=== PATIENT | female | born 1955 | race Caucasian/White ===

== ENCOUNTER 2017-09-09 11:31 | Emergency (ER) | payer MEDICAID ==
[2017-09-09 11:40] VITALS: RESP 16
--- NOTE | 2017-09-09 12:43 | EDPHY ---
H & P Time Seen by Provider: 09/09/17 12:12 HPI/ROS: CHIEF COMPLAINT: Sore throat, hoarseness HISTORY OF PRESENT ILLNESS: 61-year-old female presents to the emergency department complaining of ongoing sore throat and hoarseness over last 3 weeks. The patient states initially 3 weeks ago she developed some pain in her throat. She went to [facility] and was started on amoxicillin. She took this medication for 2 days and did not have any relief. She presented to the urgent care again and they gave her Zithromax. She states that the sore throat felt slightly improved. She would did also have a right ear infection and that has now resolved. She had a rapid strep screen which was negative. She was also given dexamethasone at that time. Patient states that her symptoms slightly improved and then over the weekend she had some scrambled legs and then within about 10 min she developed severe onset of pain in her throat. She went back to urgent care where they treated her for possible anaphylactic reaction. She states the medications did not relieve anything and gradually improved. She states today now 2 days later she has recurring hoarseness and some intermittent pain. She currently does not have any pain in her throat now. She denies dysphagia. She feels a tight feeling in her throat. She does not feel foreign body sensation. She has no chest pain or difficulty breathing. Occasional dry cough. No abdominal pain or vomiting. No dizziness or lightheadedness. REVIEW OF SYSTEMS: Constitutional: No fever, no chills. Eyes: No double or blurry vision. ENT: Sore throat. Respiratory: Cough. no shortness of breath. Cardiac: No chest pain. Gastrointestinal: No abdominal pain, vomiting or diarrhea. Genitourinary: No dysuria. Musculoskeletal: No neck or back pain. Skin: No rashes. Neurological: No headache. Past Medical/Surgical History: Negative Social History: Single and lives in [place] Smoking Status: Never smoked Physical Exam: General Appearance: Alert, no distress. Afebrile. 36.7, 98% on room air. Eyes: Pupils equal and round. Extraocular motions are all intact. ENT: Mouth: Mucous membranes moist. Mild posterior pharyngeal injection. No exudate. No uvulitis. No trismus. Raspy type voice with with whispering noted. Respiratory: No wheezing, rhonchi, or rales, lungs are clear to auscultation. Cardiovascular: Regular rate and rhythm. Gastrointestinal: Abdomen is soft and nontender, no masses, no rebound or guarding, bowel sounds normal. Neurological: Alert and oriented x 3, cranial nerves II through XII grossly intact Skin: Warm and dry, no rashes. Musculoskeletal: Nontender to palpate along the cervical, thoracic or lumbar spine. Neck is supple. Extremities: Full range of motion and no peripheral edema. Psychiatric: Patient is oriented X 3, there is no agitation. Constitutional: Initial Vital Signs Temperature (C) 36.7 C 09/09/17 11:37 Heart Rate 71 09/09/17 11:37 Respiratory Rate 16 09/09/17 11:37 Blood Pressure 144/91 H 09/09/17 11:37 O2 Sat (%) 98 09/09/17 11:37 O2 Delivery Mode Room Air Allergies/Adverse Reactions: No Known Allergies Allergy (Verified 09/09/17 11:36) Home Medications: Medication Instructions Recorded Benadryl 09/09/17 Pepcid 09/09/17 Medical Decision Making ED Course/Re-evaluation: 61-year-old female presents to the emergency department with ongoing a hoarseness and sore throat. Patient states presently she does not have a sore throat. The patient otherwise has a normal examination. She has no chest pain or difficulty breathing. No dysphagia. She has been treated with steroids as well as antibiotics and both amoxicillin for 2 days and then finished Zithromax recently. Explained to the patient that if she has had ongoing hoarseness and an intermittent tight feeling in her throat, I recommended CT soft tissue neck imaging as well as further workup. The patient however declined. She would like to follow up with Ear Nose and Throat provider. I spoke with Karla Molina, physician timber management assistant on-call for ENT, who states that she could be seen same day and information was provided for the patient. Patient was given Decadron 10 mg p.o. in the emergency department. I explained to the patient that she should return immediately if she develops difficulty swallowing, difficulty breathing, chest pain, or if she felt worse in any way. Patient was comfortable with this plan. Differential Diagnosis: Including but not limited to vocal cord dysfunction, strep pharyngitis, dissection, abscess - Data Points Medications Given: Discontinued Medications Dexamethasone (Decadron) 10 mg PO EDNOW ONE Stop: 09/09/17 13:21 Last Admin: 09/09/17 13:31 Dose: 10 mg Departure - Departure Disposition: Home, Routine, Self-Care Clinical Impression: Hoarseness of voice Condition: Good Instructions: Pharyngitis (ED) Additional Instructions: When you call to arrange for follow-up appointment with ENT, tell them that you were seen in the emergency department for pharyngitis and hoarse voice. Tell them that you have been on amoxicillin for 2 days and just finished Zithromax and dexamethasone. Referrals: Ziggy Mace MD [Medical Doctor] - 1-2 days without fail (ENT on-call) ALYCE CHE [Medical Doctor] - As per Instructions (Primary care provider personal secretary)
[2017-09-09] MEDS ORDERED: DEXAMETHASONE 4 MG TAB PO ONE (13:20)
[2017-09-09 13:35] VITALS: BP 154/70; PULSE 78; TEMP 98.2; O2SAT 96
== END 2017-09-09 13:35 | disposition home or self-care (01) ==
DX: R49.0 Dysphonia (principal)

== ENCOUNTER 2017-09-14 13:40 | Emergency (ER) | payer MEDICAID ==
[2017-09-14 13:47] VITALS: TEMP 98.1
--- NOTE | 2017-09-14 14:37 | EDPHY ---
H & P Time Seen by Provider: 09/14/17 13:54 HPI/ROS: Chief complaint. Throat swelling HPI. 61-year-old female presents emergency department with 8 day history of throat swelling. Began after eating scrambled eggs. She had previously been treated for a throat infection. She subsequently after eating eggs had hoarseness and swelling of her throat. She was seen at urgent care started on steroids, Pepcid, Benadryl. 5 days ago she was seen in our emergency department for same in was treated with further steroids. She was then seen by Ear Nose Throat and she had a scope which showed marble Ng consistent with allergic reaction. Patient was notes that eating seems to exacerbate her swelling. She is currently on prednisone, Zyrtec, Pepcid. She still has throat tightness. She agrees that she is speaking okay and swallowing okay. However she lives alone and she is concerned that this may not be able to wait. ROS Constitutional. no fever/chills, no weakness Eyes. no problems with vision ENT. Throat swelling Cardiovascular. no chest pain Respiratory. no shortness of breath, no cough Abdominal. no abdominal pain, no nausea/vomiting, no diarrhea . no problems urinating MS. no calf pain/swelling, no neck/back pain, no joint pain Skin. no rash Lymph. no swollen glands Neuro. no headache, no dizziness, no difficulty walking or with speech Past Medical/Surgical History: Pharyngitis Social History: Single, nonsmoker, no alcohol Smoking Status: Never smoked Physical Exam: General Appearance: Alert well-developed female no distress vital signs are stable Eyes: Pupils equal and round no pallor or injection. ENT, pharynx without injection. There is no stridor. Patient speaks in full sentences without difficulty Respiratory: There are no retractions, lungs are clear to auscultation. Cardiovascular: Regular rate and rhythm. Gastrointestinal: Abdomen is soft and nontender, no masses, bowel sounds normal. Neurological: Awake and alert, sensory and motor exams grossly normal. Skin: Warm and dry, no rashes. Musculoskeletal: Neck is supple nontender. Extremities symmetrical, full range of motion. Psychiatric: Patient is oriented X 3, there is no agitation. Constitutional: Initial Vital Signs Temperature (C) 36.7 C 09/14/17 13:43 Heart Rate 78 09/14/17 13:43 Respiratory Rate 18 09/14/17 13:43 Blood Pressure 145/107 H 09/14/17 13:43 O2 Sat (%) 97 09/14/17 13:43 O2 Delivery Mode Room Air Allergies/Adverse Reactions: No Known Allergies Allergy (Verified 09/14/17 13:43) Home Medications: Medication Instructions Recorded Pepcid 09/09/17 Cetirizine [ZyrTEC 10 mg (*)] 10 mg PO DAILY 09/14/17 Medical Decision Making - Diagnostics Imaging Results: Imaging Impressions Soft Tissue Neck X-Ray 09/14/17 14:37 Impression: 1. Normal soft tissue view of the neck. 2. Degenerative disk disease mid to lower cervical spine. Lateral soft tissue neck shows calcification of the thyroid cartilage but no evidence for airway embarrassment. I reviewed this and discuss this with Dr. Bourgeois, radiology ED Course/Re-evaluation: On serial evaluations patient remained stable. No airway distress. No stridor. Handling secretions. Speaking In full sentences. I consulted and discussed case with Dr. Mayer, ENT, who recommends no further prednisone or Decadron. 4:15 p.m. the patient and I discussed imaging study results, treatment plan including criteria for return recommendation for follow-up and further evaluation. She expresses understanding and agreement Differential Diagnosis: Allergic reaction, food impaction, anxiety. Departure - Departure Disposition: Home, Routine, Self-Care Clinical Impression: Throat swelling Condition: Good Instructions: Pharyngitis (ED) Additional Instructions: Continue the Pepcid and Zyrtec and prednisone. Return tonight for worsening symptoms. Call [facility] ENT tomorrow for further appointment and evaluation. Referrals: NONE *PRIMARY CARE P,. [Primary Care Provider] - As per Instructions Adolfo Felder MD [Medical Doctor] - 1 day without fail
[2017-09-14] MEDS ORDERED: DEXAMETHASONE 4 MG TAB PO ONE (16:32)
[2017-09-14 16:39] VITALS: BP 150/94; PULSE 67; RESP 16; O2SAT 95
== END 2017-09-14 16:37 | disposition home or self-care (01) ==
DX: J39.2 Other diseases of pharynx (principal)

== ENCOUNTER 2017-09-15 21:59 | Emergency (ER) | payer MEDICAID ==
[2017-09-15 22:20] VITALS: RESP 18
--- NOTE | 2017-09-15 22:23 | EDPHY ---
H & P Stated Complaint: feels like tongue is swelling HPI/ROS: HPI CHIEF COMPLAINT: Tongue swelling HISTORY OF PRESENT ILLNESS: This patient very pleasant 61-year-old female she denies having any significant medical history does not take any daily medications she presents emergency room with a perceived feeling that her tongue is swollen. Patient has been recently undergoing testing and workup for allergic reaction. She has not seen an spouter however she has seen ENT twice. She was recently seen in the emergency room for allergic reaction type symptoms of throat swelling. She was placed on recently Zyrtec, prednisone, and Benadryl. She states over the past 2 weeks she has been seen at 2 urgent cares the ER once as well as ENT twice. She has been on steroids for approximately 9 days. 2 days ago she reports that they made this and stops hold her medications as she was on prednisone for a long time. She now presents emergency room stating that she knows been on hour ago that her tongue seemed a little bit swollen. She denies any trouble swallowing denies trouble breathing. Denies shortness of breath, denies change in phonation. She states that she is hypervigilant currently and is really unsure for tongue is swollen but feels that it may be a little bit more swollen. She came to the emergency room for evaluation. After lengthy discussion with the patient she has declined any further steroids at this time she would like to be observed here in the emergency room and take Benadryl and Pepcid. Given that she does not want take another course of steroids will observe here closely in the emergency room for progression of symptoms. She is willing to take Benadryl Pepcid. Of note here in emergency room she appears well nontoxic no acute distress. On exam I do not really appreciate any tongue swelling. There is no stridor. She swallowing appropriately. Breathing appropriately. She agrees for observation at this time. Past Medical History: No significant medical history Past Surgical History: No significant surgical history Social History: Denies drugs alcohol tobacco products. Family History: Noncontributory ROS REVIEW OF SYSTEMS: A comprehensive 10 point review of systems is otherwise negative aside from elements mentioned in the history of present illness. Exam Constitutional appears well nontoxic triage nursing summary reviewed, vital signs reviewed, awake/alert. Eyes normal conjunctivae and sclera, EOMI, PERRLA. HENT oropharynx: No stridor, no signs of Aly's, uvula midline, posterior pharynx I do not appreciate a cobblestoning or swelling, tongue does not appear large to me ,moist mucus membranes, no epistaxis, neck supple/ no meningismus, no raccoon eyes. Respiratory clear to auscultation bilaterally, normal breath sounds, no respiratory distress, no wheezing. Cardiovascular rate normal, regular rhythm, no murmur, no edema, distal pulses normal. Gastrointestinal soft, non-tender, no rebound, no guarding, normal bowel sounds, no distension, no pulsatile mass. Genitourinary no CVA tenderness. Musculoskeletal no midline vertebral tenderness, full range of motion, no calf swelling, no tenderness of extremities, no meningismus, good pulses, neurovascularly intact. Skin pink, warm, & dry, no rash, skin atraumatic. Neurologic awake, alert and oriented x 3, AAOx3, moves all 4 extremities equally, motor intact, sensory intact, CN II-XII intact, normal cerebellar, normal vision, normal speech. Psychiatric normal mood/affect. Heme/Lymph/Immune no lymphadenopathy. Differential Diagnosis: Includes but is not limited to in a particular order allergic reaction, anaphylaxis, angioedema, anxiety Medical Decision Making: Plan for this patient she declined steroids here in emergency room. Has agreed for observation. Will give a dose of Pepcid and Benadryl and observe her here. If she gets worse will give steroids. If she gets even further worse will give epinephrine. Admit to the hospital. Re-evaluation: 0117: Patient has been evaluated for over 3 hr here. There has been no progression of tongue swelling. She has been resting and sleeping. She denies any trouble breathing or swelling. She would like to go home. I recommend strict return precautions understands return emergency room if develops any worsening swelling trouble swelling or questions or concerns or perceives that her tongue is getting bigger. On re-examination her oropharynx do not appreciate any glossitis or significant tongue swelling. Uvula midline. Return precautions given. She understands. She declined prednisone or steroids. Recommend Benadryl and Pepcid for the next 3 days. Follow up closely with her spouter return to the ER. Source: Patient - Personal History Current Tetanus/Diphtheria Vaccine: Unsure Current Tetanus Diphtheria and Acellular Pertussis (TDAP): Unsure - Medical/Surgical History Hx Asthma: No Hx Chronic Respiratory Disease: No Hx Diabetes: No Hx Cardiac Disease: No Hx Renal Disease: No Hx Cirrhosis: No Hx Alcoholism: No Hx HIV/AIDS: No Hx Splenectomy or Spleen Trauma: No Other PMH: pharyngitis, - Social History Smoking Status: Never smoked Constitutional: Initial Vital Signs Temperature (C) 36.5 C 09/15/17 22:16 Heart Rate 73 09/15/17 22:16 Respiratory Rate 18 09/15/17 22:16 Blood Pressure 138/95 H 09/15/17 22:16 O2 Sat (%) 96 09/15/17 22:16 O2 Delivery Mode Room Air Allergies/Adverse Reactions: No Known Allergies Allergy (Verified 09/14/17 13:43) Home Medications: Medication Instructions Recorded NK [No Known Home Meds] 09/15/17 Medical Decision Making - Data Points Medications Given: Discontinued Medications Diphenhydramine HCl (Benadryl) 25 mg PO EDNOW ONE Stop: 09/15/17 22:41 Last Admin: 09/15/17 22:51 Dose: 25 mg Famotidine (Pepcid) 20 mg PO EDNOW ONE Stop: 09/15/17 22:41 Last Admin: 09/15/17 22:51 Dose: 20 mg Departure - Departure Disposition: Home, Routine, Self-Care Clinical Impression: Allergic reaction Qualifiers: Encounter type: initial encounter Qualified Code(s): T78.40XA - Allergy, unspecified, initial encounter Condition: Good Instructions: Allergies (ED), General Allergic Reaction (ED), Allergy Testing ( ED) Additional Instructions: 1. Return emergency room immediately if you feel like you are having worsening allergic reaction or tongue swelling or trouble breathing. 2. Follow up with your spouter. Referrals: Flaca Resendiz MD [Primary Care Provider] - As per Instructions
[2017-09-15] MEDS ORDERED: diphenhydrAMINE 25 MG CAP PO ONE (22:40)
[2017-09-15] MEDS ORDERED: FAMOTIDINE 20 MG TAB PO ONE (22:40)
[2017-09-16 01:26] VITALS: BP 113/67; PULSE 54; TEMP 97.3; O2SAT 94
== END 2017-09-16 01:27 | disposition home or self-care (01) ==
DX: T78.40XA Allergy, unspecified, initial encounter (principal)

== ENCOUNTER → 2017-11-18 | Outpatient (CLI) | payer MEDICAID | LOC: FIMAGING 09:18 | PROVIDERS: ATTEND Family Medicine | DX: Z12.31 Encounter for screening mammogram for malignant neoplasm of breast (principal) ==